=== PATIENT | female | born 1955 | race American Indian/Alaskan Native ===

== ENCOUNTER 2016-11-09 13:15 | Emergency (ER) | payer MEDICARE ==
[2016-11-09 15:13] LABS: Basophils % (Auto) 0.7 % (0.0-1.8); Hematocrit 37.7 % (30.3-42.9); Hemoglobin 12.3 gm/dl (10.1-14.3); Mean Corpuscular HGB Conc 33 % (30-34); Mean Corpuscular Hemoglobin 28 pg (28-32); Mean Corpuscular Volume 86 fl (79-97); Platelet Count 345 K/mm3 (140-440); Red Blood Count 4.37 M/mm3 (3.65-5.03); Red Cell Distribution Width 14.5 % (13.2-15.2); White Blood Count 7.1 K/mm3 (4.5-11.0)
[2016-11-09 15:28] LABS: Anion Gap 20 mmol/L; Blood Urea Nitrogen 12 mg/dL (7-17); Calcium 10.3 mg/dL (8.4-10.2); Carbon Dioxide 28 mmol/L (22-30); Chloride 99.2 mmol/L (98-107); Glucose 120 mg/dL (65-100); Potassium 4.2 mmol/L (3.6-5.0); Sodium 143 mmol/L (137-145)
--- NOTE | 2016-11-09 16:46 | XRay Report ---
Chest 2 views. Findings: The heart and vessels are normal. The lungs are clear. There is suboptimal inspiration. There is no pleural fluid. Degenerative changes are seen in the dorsal spine. Impression: No acute findings.
--- NOTE | 2016-11-09 21:41 | Emergency Department Report ---
ED General Adult HPI - General Chief complaint: Dyspnea/Respdistress Stated complaint: CONGESTION/COUGH/SORE THROAT Time Seen by Provider: 11/09/16 21:25 Source: patient Mode of arrival: Ambulatory Limitations: No Limitations - History of Present Illness Initial comments: 61 y/o female complain of cough x 1 week .pt complain of of sore throat x 2 weeks .pt state painful to swallow .pain is current /.pt state that constant cough has cause intermittent chest discomfort upon cough.pt denies any chest pain at present .pt state she has been out htn and dm medication x 1 week .pt state she has appointment with [facility] in 2 weeks.pt denies any shortness of breath and n/v or dizziness at present. Onset/Timin -: week(s) Associated Symptoms: cough, other (sore throat ) - Related Data Home Medications Medication Instructions Recorded Confirmed Last Taken amLODIPine [Norvasc] 10 mg PO DAILY #0 01/13/15 03/11/15 Unknown Aspirin [Aspirin TAB] 325 mg PO QDAY 03/14/15 03/14/15 1 Day Ago Previous Rx's Medication Instructions Recorded Last Taken Type ALBUTEROL Inhaler [ProAir HFA 2 puff IH QID PRN #1 inhalation 12/21/13 Unknown Rx Inhaler] metFORMIN [Glucophage] 500 mg PO BID #60 tablet 07/10/14 Unknown Rx Metoprolol [Lopressor TAB] 50 mg PO BID #60 tablet 03/14/15 Unknown Rx Simvastatin 20 mg PO QHS #30 tablet 03/14/15 Unknown Rx glipiZIDE [Glucotrol] 5 mg PO QDAY #30 tablet 03/14/15 Unknown Rx Acetaminophen with Codeine 120 ml PO TID #120 elixir 11/09/16 Unknown Rx [Acetaminophen-Codeine ORAL LIQ] Azithromycin [Zithromax Z-TAMIKA] 250 mg PO DAILY #6 tablet 11/09/16 Unknown Rx Allergies Allergy/AdvReac Type Severity Reaction Status Date / Time No Known Allergies Allergy Verified 01/13/15 17:54 ED Review of Systems ROS: Stated complaint: CONGESTION/COUGH/SORE THROAT Other details as noted in HPI Constitutional: denies: chills, fever Eyes: denies: eye pain, eye discharge, vision change ENT: throat pain. denies: ear pain Respiratory: cough. denies: shortness of breath, wheezing Cardiovascular: denies: chest pain, palpitations Endocrine: no symptoms reported Gastrointestinal: denies: abdominal pain, nausea, diarrhea Genitourinary: denies: urgency, dysuria, discharge Musculoskeletal: denies: back pain, joint swelling, arthralgia Skin: denies: rash, lesions Neurological: denies: headache, weakness, paresthesias Psychiatric: denies: anxiety, depression Hematological/Lymphatic: denies: easy bleeding, easy bruising ED Past Medical Hx - Past Medical History Hx Hypertension: Yes Hx Congestive Heart Failure: Yes Hx Diabetes: Yes Hx Asthma: No Hx COPD: No Hx HIV: No - Surgical History Hx Breast Surgery: Yes (reduction) Additional Surgical History: hysterectomy. tubal ligation - Social History Smoking Status: Never Smoker Substance Use Type: None - Medications Home Medications: Home Medications Medication Instructions Recorded Confirmed Last Taken Type ALBUTEROL Inhaler [ProAir HFA 2 puff IH QID PRN #1 inhalation 12/21/13 03/11/15 Unknown Rx Inhaler] metFORMIN [Glucophage] 500 mg PO BID #60 tablet 07/10/14 03/11/15 Unknown Rx amLODIPine [Norvasc] 10 mg PO DAILY #0 01/13/15 03/11/15 Unknown History Aspirin [Aspirin TAB] 325 mg PO QDAY 03/14/15 03/14/15 1 Day Ago History Metoprolol [Lopressor TAB] 50 mg PO BID #60 tablet 03/14/15 Unknown Rx Simvastatin 20 mg PO QHS #30 tablet 03/14/15 Unknown Rx glipiZIDE [Glucotrol] 5 mg PO QDAY #30 tablet 03/14/15 Unknown Rx Acetaminophen with Codeine 120 ml PO TID #120 elixir 11/09/16 Unknown Rx [Acetaminophen-Codeine ORAL LIQ] Azithromycin [Zithromax Z-TAMIKA] 250 mg PO DAILY #6 tablet 11/09/16 Unknown Rx ED Physical Exam - General Limitations: No Limitations General appearance: alert, in no apparent distress - Head Head exam: Present: atraumatic, normocephalic - Eye Eye exam: Present: normal appearance, PERRL - ENT ENT exam: Present: mucous membranes moist - Expanded ENT Exam Expanded TM/Canal exam: Effusion: Right TM, Left TM Mouth exam: Present: other (post nasal drip ) Throat exam: Positive: tonsillar erythema, tonsillomegaly - Neck Neck exam: Present: normal inspection - Respiratory Respiratory exam: Present: normal lung sounds bilaterally. Absent: respiratory distress - Cardiovascular Cardiovascular Exam: Present: regular rate, normal rhythm. Absent: systolic murmur, diastolic murmur, rubs, gallop - GI/Abdominal GI/Abdominal exam: Present: soft, normal bowel sounds - Extremities Exam Extremities exam: Present: normal inspection, full ROM - Back Exam Back exam: Present: normal inspection, full ROM - Neurological Exam Neurological exam: Present: alert, oriented X3 - Psychiatric Psychiatric exam: Present: normal affect, normal mood - Skin Skin exam: Present: warm, dry, intact, normal color. Absent: rash ED Course Vital Signs 11/09/16 13:50 Temperature 98.4 F Pulse Rate 91 H Respiratory 16 Rate Blood Pressure 153/92 O2 Sat by Pulse 97 Oximetry ED Medical Decision Making - Lab Data Result diagrams: 11/09/16 14:57 11/09/16 14:57 - Medical Decision Making upper respiratory infection .pt current out of htn and dm pt denies any chest discomfort during course of ed .pt refuse any pain medication during the course of ed . Critical care attestation.: If time is entered above; I have spent that time in minutes in the direct care of this critically ill patient, excluding procedure time. ED Disposition Clinical Impression: Upper respiratory infection Qualifiers: URI type: unspecified URI Qualified Code(s): J06.9 - Acute upper respiratory infection, unspecified Disposition: DISCHARGED TO HOME OR SELFCARE Is pt being admited?: No Does the pt Need Aspirin: No Condition: Stable Instructions: Upper Respiratory Infection (ED) Prescriptions: Acetaminophen with Codeine [Acetaminophen-Codeine ORAL LIQ] 120 ml PO TID #120 elixir Azithromycin [Zithromax Z-TAMIKA] 250 mg PO DAILY #6 tablet Referrals: PRIMARY CARE,MD [Primary Care Provider] - 3-5 Days [facility] [Outside] - 3-5 Days Forms: Work/School Release Form(ED) Time of Disposition: 21:51
[2016-11-09 22:36] VITALS: BP 165/104
== END 2016-11-09 21:52 | disposition home or self-care (01) ==
LOC: ED 13:15
DX: J06.9 Acute upper respiratory infection, unspecified (principal); I10 Essential (primary) hypertension; E11.9 Type 2 diabetes mellitus without complications; Z98.51 Tubal ligation status; Z90.710 Acquired absence of both cervix and uterus
CPT/HCPCS: 36415; 71020; 80048; 84484; 85025; 87116; 87430; 93005; 93010; 99285

== ENCOUNTER 2017-01-23 19:12 | Emergency (ER) | payer MEDICARE ==
[2017-01-23 22:08] LABS: Hematocrit 32.6 % (30.3-42.9); Hemoglobin 10.8 gm/dl (10.1-14.3); Mean Corpuscular HGB Conc 33 % (30-34); Mean Corpuscular Hemoglobin 29 pg (28-32); Mean Corpuscular Volume 87 fl (79-97); Red Blood Count 3.76 M/mm3 (3.65-5.03); White Blood Count 12.5 K/mm3 (4.5-11.0)
[2017-01-23 22:15] LABS: Platelet Count 232 K/mm3 (140-440)
[2017-01-23 22:34] LABS: Albumin 4.4 g/dL (3.9-5); Albumin/Globulin Ratio 1.1 %; BUN/Creatinine Ratio 13.57; Bilirubin,Total 0.6 mg/dL (0.1-1.2); Calcium 10.8 mg/dL (8.4-10.2); Chloride 94.5 mmol/L (98-107); Potassium 4.1 mmol/L (3.6-5.0); Total Protein 8.3 g/dL (6.3-8.2)
[2017-01-23 22:35] LABS: Bacteria,Urine 1+ /HPF (Negative); Bilirubin,Urine NEG (Negative); Blood,Urine SM (Negative); Ketones,Urine TR mg/dL (Negative); Leukocyte Esterase,Urine NEG (Negative); Mucus,Urine FEW /HPF; Nitrite,Urine NEG (Negative); Urobilinogen,Urine < 2.0 mg/dL (<2.0)
[2017-01-23 22:45] LABS: Anisocytosis 1+; Basophils % (Manual) 0 % (0.0-1.8); Blastocytes % (Manual) 0 %; Eosinophils % (Manual) 0 % (0.0-4.3); Poikilocytosis Few
[2017-01-23 22:46] LABS: Diff Status Complete
[2017-01-24 00:35] VITALS: BP 185/106
--- NOTE | 2017-02-01 13:44 | ED Elopement Review ---
ED Pt Elopement review - Results review Lab results: Laboratory Tests 01/23/17 01/23/17 01/23/17 21:54 21:54 22:00 WBC 12.5 H RBC 3.76 Hgb 10.8 Hct 32.6 MCV 87 MCH 29 MCHC 33 RDW 14.0 Plt Count 232 Add Manual Diff Complete Total Counted 100 Seg Neutrophils % [place] Seg Neuts % (Manual) 96.0 H Band Neutrophils % 0 Lymphocytes % (Manual) 2.0 L Reactive Lymphs % (Man) 0 Monocytes % (Manual) 2.0 Eosinophils % (Manual) 0 Basophils % (Manual) 0 Metamyelocytes % 0 Myelocytes % 0 Promyelocytes % 0 Blast Cells % 0 Nucleated RBC % Not Reportable Seg Neutrophils # Man 12.0 H Band Neutrophils # 0.0 Lymphocytes # (Manual) 0.3 L Abs React Lymphs (Man) 0.0 Monocytes # (Manual) 0.3 Eosinophils # (Manual) 0.0 Basophils # (Manual) 0.0 Metamyelocytes # 0.0 Myelocytes # 0.0 Promyelocytes # 0.0 Blast Cells # 0.0 WBC Morphology Not Reportable Hypersegmented Neuts Not Reportable Hyposegmented Neuts Not Reportable Hypogranular Neuts Not Reportable Smudge Cells Not Reportable Toxic Granulation Not Reportable Toxic Vacuolation Not Reportable Dohle Bodies Not Reportable Pelger-Huet Anomaly Not Reportable Meeta Rods Not Reportable Platelet Estimate Appears normal Clumped Platelets Not Reportable Plt Clumps, EDTA Not Reportable Large Platelets Not Reportable Giant Platelets Not Reportable Platelet Satelliting Not Reportable Plt Morphology Comment Not Reportable RBC Morphology Not Reportable Dimorphic RBCs Not Reportable Polychromasia Not Reportable Hypochromasia Not Reportable Poikilocytosis Few Anisocytosis 1+ Microcytosis Not Reportable Macrocytosis Not Reportable Spherocytes Not Reportable Pappenheimer Bodies Not Reportable Sickle Cells Not Reportable Target Cells Not Reportable Tear Drop Cells Not Reportable Ovalocytes Not Reportable Helmet Cells Not Reportable St[place] Bodies Not Reportable [place] Rings Not Reportable [place] Cells Not Reportable Bite Cells Not Reportable Crenated Cell Not Reportable Elliptocytes Not Reportable Acanthocytes (Spur) Not Reportable Rouleaux Not Reportable Hemoglobin C Crystals Not Reportable Schistocytes Not Reportable Malaria parasites Not Reportable Cornelius Bodies Not Reportable Hem Pathologist Commnt No Sodium 137 Potassium 4.1 Chloride 94.5 L Carbon Dioxide 24 Anion Gap 23 BUN 19 H Creatinine 1.4 H Estimated GFR 46 BUN/Creatinine Ratio 13.57 Glucose 209 H Calcium 10.8 H Total Bilirubin 0.6 AST 22 ALT 18 Alkaline Phosphatase 75 Total Protein 8.3 H Albumin 4.4 Albumin/Globulin Ratio 1.1 Lipase 69 H Urine Color Yellow Urine Turbidity Clear Urine pH 5.0 Ur Specific [place] 1.016 Urine Protein 100 mg/dl Urine Glucose (UA) 50 Urine Ketones Tr Urine Blood Sm Urine Nitrite Neg Urine Bilirubin Neg Urine Urobilinogen < 2.0 Ur Leukocyte Esterase Neg Urine WBC (Auto) 2.0 Urine RBC (Auto) 2.0 U Epithel Cells (Auto) 8.0 Urine Bacteria (Auto) 1+ Urine Mucus Few - Call Back decision Pt Call Back Decision: No action required
== END 2017-01-24 03:06 | disposition left against medical advice (07) ==
LOC: ED 19:12
DX: R11.2 Nausea with vomiting, unspecified (principal); M54.9 Dorsalgia, unspecified; Z53.21 Procedure and treatment not carried out due to patient leaving prior to being seen by health care provider
CPT/HCPCS: 36415; 80053; 81001; 83690; 85007; 85025

== ENCOUNTER 2017-12-24 11:39 | Outpatient (CLI) | payer MEDICARE ==
[2017-12-24 12:02] LABS: Basophils % (Auto) 0.8 % (0.0-1.8); Eosinophils # (Auto) 0.2 K/mm3 (0.0-0.4); Eosinophils % (Auto) 3.3 % (0.0-4.3); Hemoglobin 10.7 gm/dl (10.1-14.3); Lymphocytes % (Auto) 33.9 % (13.4-35.0); Mean Corpuscular HGB Conc 33 % (30-34); Mean Corpuscular Hemoglobin 28 pg (28-32); Mean Corpuscular Volume 87 fl (79-97); Monocytes # (Auto) 0.3 K/mm3 (0.0-0.8); Monocytes % (Auto) 5.5 % (0.0-7.3); Platelet Count 346 K/mm3 (140-440); Red Blood Count 3.78 M/mm3 (3.65-5.03); Red Cell Distribution Width 14.8 % (13.2-15.2)
[2017-12-24 12:21] LABS: Bilirubin,Urine NEG (Negative); Blood,Urine NEG (Negative); Color,Urine Yellow (Yellow); RBC,Urine < 1.0 /HPF (0.0-6.0); Urobilinogen,Urine < 2.0 mg/dL (<2.0)
[2017-12-24 12:27] LABS: Albumin 4.5 g/dL (3.9-5); Calcium 10.5 mg/dL (8.4-10.2)
[2017-12-24 14:02] LABS: Creatinine,Urine 90.1 mg/dL (0.1-20.0); Protein/Creatinine Ratio,Urine 0.31
== END 2017-12-24 11:40 | disposition home or self-care (01) ==
LOC: LAB 11:39
PROVIDERS: ATTEND Internal Medicine Nephrology
DX: I13.0 Hypertensive heart and chronic kidney disease with heart failure and stage 1 through stage 4 chronic kidney disease, or unspecified chronic kidney disease (principal); N18.3 Chronic kidney disease, stage 3 (moderate); I50.9 Heart failure, unspecified; E11.22 Type 2 diabetes mellitus with diabetic chronic kidney disease
CPT/HCPCS: 36415; 80053; 81001; 82570; 83970; 84100; 84156; 85025

== ENCOUNTER 2018-01-03 09:49 | Outpatient (CLI) | payer MEDICARE ==
--- NOTE | 2018-01-03 11:15 | Cat Scan Report ---
FINAL REPORT EXAM: CT HEAD/BRAIN WO CON HISTORY: HISTORY OF STROKE W/O RESIDUAL DEFICIT TECHNIQUE: CT of the Head without IV contrast. PRIORS: None currently available. FINDINGS: Focal encephalomalacia in the left occipital lobe and along the medial margin the left parietal lobe is probably related to chronic ischemia. Chronic lacunar infarcts in both basal ganglias. Decreased attenuation regions in the periventricular and subcortical white matter are nonspecific and may represent small vessel ischemic disease, encephalopathy, edema, or a demyelinating process. Small vessel ischemic disease is more likely. Vascular calcifications. There is no evidence for acute ischemia. There is no hemorrhage. There is no midline shift. There is no hydrocephalus. There is no mass. Age appropriate owen-white matter attenuation is noted. There is no calvarial fracture. The temporal bones demonstrate aerated mastoid air cells. The middle ears appear unremarkable. Possible mucosal thickening or partially imaged retention cysts in the left maxillary sinus measures 2.2 mm. Globes are intact. IMPRESSION: No acute intracranial findings. Chronic ischemic disease.
== END 2018-01-03 09:50 | disposition home or self-care (01) ==
LOC: CT 09:49
PROVIDERS: ATTEND Student in an Organized Health Care Education/Training Program
DX: I69.398 Other sequelae of cerebral infarction (principal); I99.8 Other disorder of circulatory system; G93.89 Other specified disorders of brain
CPT/HCPCS: 70450

== ENCOUNTER 2018-06-15 10:01 | Emergency (ER) | payer MEDICARE ==
[2018-06-15 10:17] VITALS: BP 131/69
[2018-06-15] MEDS ORDERED: NACL 0.9% 1000 ML 1,000 ML IV ONE (11:49)
--- NOTE | 2018-06-15 11:54 | Emergency Department Report ---
ED Abdominal Pain HPI - General Chief Complaint: Abdominal Pain Stated Complaint: LEFT SIDE BODY PAIN Time Seen by Provider: 06/15/18 11:39 Source: patient Mode of arrival: Ambulatory Limitations: No Limitations - History of Present Illness Initial Comments: 63-year-old female with complaints of left flank pain 6 days. Patient states unable to lay on left side. Denies fever, nausea, vomiting, diarrhea, constipation. Patient denies cough, chest pain, shortness of breath, leg pain or swelling. Patient also denies urinary complaints including hematuria, dysuria, urinary frequency. Patient reports remote history of kidney stone in the past. Patient states his been able to tolerate pain at home so has not taken any pain meds. Patient reports brief radiation of pain to right upper quadrant which is now resolved. MD Complaint: flank pain (left) -: Gradual, days(s) (6) Location: LUQ, L flank Radiation: none Migration to: no migration Severity: moderate Quality: aching Consistency: intermittent Improves With: rest Worsens With: movement Associated Symptoms: denies: nausea, vomiting, diarrhea, fever, constipation, dysuria, melena, hematuria - Related Data Home Medications Medication Instructions Recorded Confirmed Last Taken amLODIPine [Norvasc] 10 mg PO DAILY #0 01/13/15 03/11/15 Unknown Aspirin [Aspirin TAB] 325 mg PO QDAY 03/14/15 03/14/15 1 Day Ago ~03/13/15 Previous Rx's Medication Instructions Recorded Last Taken Type ALBUTEROL Inhaler (OR & NICU) 2 puff IH QID PRN #1 inhalation 12/21/13 Unknown Rx [ProAir HFA Inhaler] metFORMIN [Glucophage] 500 mg PO BID #60 tablet 07/10/14 Unknown Rx Metoprolol [Lopressor TAB] 50 mg PO BID #60 tablet 03/14/15 Unknown Rx Simvastatin 20 mg PO QHS #30 tablet 03/14/15 Unknown Rx glipiZIDE [Glucotrol] 5 mg PO QDAY #30 tablet 03/14/15 Unknown Rx Acetaminophen with Codeine 120 ml PO TID #120 elixir 11/09/16 Unknown Rx [Acetaminophen-Codeine ORAL LIQ] Azithromycin [Zithromax Z-TAMIKA] 250 mg PO DAILY #6 tablet 11/09/16 Unknown Rx Lisinopril [Zestril TAB] 10 mg PO QDAY #30 tablet 11/09/16 Unknown Rx amLODIPine [Norvasc] 5 mg PO BID #30 tab 11/09/16 Unknown Rx metFORMIN [Glucophage] 500 mg PO BID #60 tablet 11/09/16 Unknown Rx Methocarbamol [Robaxin-750] 750 mg PO Q6HR PRN #20 tablet 06/15/18 Unknown Rx Allergies Allergy/AdvReac Type Severity Reaction Status Date / Time No Known Allergies Allergy Verified 01/13/15 17:54 ED Review of Systems ROS: Stated complaint: LEFT SIDE BODY PAIN Other details as noted in HPI Comment: All other systems reviewed and negative Constitutional: denies: chills, fever Respiratory: denies: cough, shortness of breath Cardiovascular: denies: chest pain Gastrointestinal: abdominal pain. denies: nausea, vomiting, diarrhea, constipation Genitourinary: denies: dysuria, frequency, hematuria Musculoskeletal: other (denies leg pain or swelling) ED Past Medical Hx - Past Medical History Previous Medical History?: Yes Hx Hypertension: Yes Hx Congestive Heart Failure: Yes Hx Diabetes: Yes Hx Asthma: No Hx COPD: No Hx HIV: No - Surgical History Past Surgical History?: Yes Hx Breast Surgery: Yes (reduction) Additional Surgical History: hysterectomy. tubal ligation - Social History Smoking Status: Never Smoker Substance Use Type: None - Medications Home Medications: Home Medications Medication Instructions Recorded Confirmed Last Taken Type ALBUTEROL Inhaler (OR & NICU) 2 puff IH QID PRN #1 inhalation 12/21/13 03/11/15 Unknown Rx [ProAir HFA Inhaler] metFORMIN [Glucophage] 500 mg PO BID #60 tablet 07/10/14 03/11/15 Unknown Rx amLODIPine [Norvasc] 10 mg PO DAILY #0 01/13/15 03/11/15 Unknown History Aspirin [Aspirin TAB] 325 mg PO QDAY 03/14/15 03/14/15 1 Day Ago History ~03/13/15 Metoprolol [Lopressor TAB] 50 mg PO BID #60 tablet 03/14/15 Unknown Rx Simvastatin 20 mg PO QHS #30 tablet 03/14/15 Unknown Rx glipiZIDE [Glucotrol] 5 mg PO QDAY #30 tablet 03/14/15 Unknown Rx Acetaminophen with Codeine 120 ml PO TID #120 elixir 11/09/16 Unknown Rx [Acetaminophen-Codeine ORAL LIQ] Azithromycin [Zithromax Z-TAMIKA] 250 mg PO DAILY #6 tablet 11/09/16 Unknown Rx Lisinopril [Zestril TAB] 10 mg PO QDAY #30 tablet 11/09/16 Unknown Rx amLODIPine [Norvasc] 5 mg PO BID #30 tab 11/09/16 Unknown Rx metFORMIN [Glucophage] 500 mg PO BID #60 tablet 11/09/16 Unknown Rx Methocarbamol [Robaxin-750] 750 mg PO Q6HR PRN #20 tablet 06/15/18 Unknown Rx ED Physical Exam - General Limitations: No Limitations General appearance: alert, in no apparent distress - Head Head exam: Present: atraumatic, normocephalic - Eye Eye exam: Present: normal appearance - ENT ENT exam: Present: mucous membranes moist - Neck Neck exam: Present: normal inspection - Respiratory Respiratory exam: Present: normal lung sounds bilaterally. Absent: respiratory distress - Cardiovascular Cardiovascular Exam: Present: regular rate, normal rhythm - GI/Abdominal GI/Abdominal exam: Present: soft. Absent: distended, tenderness - Extremities Exam Extremities exam: Absent: pedal edema, calf tenderness - Back Exam Back exam: Present: CVA tenderness (L) - Neurological Exam Neurological exam: Present: alert, oriented X3 - Psychiatric Psychiatric exam: Present: normal affect, normal mood - Skin Skin exam: Present: warm, dry, intact, normal color ED Course Vital Signs 06/15/18 10:09 Temperature 98.8 F Pulse Rate 71 Respiratory 18 Rate Blood Pressure 131/69 O2 Sat by Pulse 97 Oximetry ED Medical Decision Making - Lab Data Result diagrams: 06/15/18 12:22 06/15/18 12:22 - Differential Diagnosis muscle strain, kidney stone, pyelonephritis Critical care attestation.: If time is entered above; I have spent that time in minutes in the direct care of this critically ill patient, excluding procedure time. ED Disposition Clinical Impression: Muscle strain of chest wall Disposition: DC-01 TO HOME OR SELFCARE Is pt being admited?: No Condition: Stable Instructions: Muscle Strain (ED) Prescriptions: Methocarbamol [Robaxin-750] 750 mg PO Q6HR PRN #20 tablet PRN Reason: Spasms Referrals: PRIMARY CARE, [Primary Care Provider] - 3-5 Days
[2018-06-15 12:12] LABS: Bilirubin,Urine NEG (Negative); Blood,Urine NEG (Negative); Color,Urine Yellow (Yellow); Urobilinogen,Urine < 2.0 mg/dL (<2.0)
[2018-06-15 12:49] LABS: Basophils % (Auto) 0.6 % (0.0-1.8); Eosinophils # (Auto) 0.2 K/mm3 (0.0-0.4); Eosinophils % (Auto) 3.2 % (0.0-4.3); Hematocrit 33.3 % (30.3-42.9); Hemoglobin 10.9 gm/dl (10.1-14.3); Lymphocytes % (Auto) 31.5 % (13.4-35.0); Mean Corpuscular HGB Conc 33 % (30-34); Mean Corpuscular Hemoglobin 28 pg (28-32); Mean Corpuscular Volume 87 fl (79-97); Monocytes # (Auto) 0.5 K/mm3 (0.0-0.8); Monocytes % (Auto) 7.3 % (0.0-7.3); Platelet Count 343 K/mm3 (140-440); Red Blood Count 3.84 M/mm3 (3.65-5.03); Red Cell Distribution Width 14.4 % (13.2-15.2)
--- NOTE | 2018-06-15 12:49 | Cat Scan Report ---
FINAL REPORT EXAM: CT ABDOMEN PELVIS WO CON HISTORY: left flank pain TECHNIQUE: Noncontrast CT of the abdomen and pelvis performed. No IV or gastrointestinal contrast was administered. Axial images and coronal and sagittal reformatted images were obtained. PRIORS: None. FINDINGS: The visualized aspects of the lung bases are clear. There are coronary artery atherosclerotic calcifications. Within the limitations of a non-enhanced study, the visualized liver, spleen, pancreas, adrenal glands and kidneys demonstrate no significant abnormalities. There is a punctate nonobstructing right intrarenal calculus. There is no hydronephrosis or other evidence of obstructive uropathy. There are aortoiliac atherosclerotic calcifications. There is no abdominal aortic aneurysm. There is no evidence of intestinal obstruction. The appendix is normal. There is diverticulosis throughout the colon. There is no evidence of acute diverticulitis. There are no abnormal fluid collections seen. There is no free intraperitoneal air. The bladder is unremarkable. IMPRESSION: Diverticulosis. No acute diverticulitis seen. Punctate nonobstructing right intrarenal calculus. No hydronephrosis or other evidence for acute obstructive uropathy. Coronary and aortic atherosclerotic calcifications.
[2018-06-15 12:51] LABS: Calcium 10.6 mg/dL (8.4-10.2)
== END 2018-06-15 14:15 | disposition home or self-care (01) ==
LOC: ED 10:01
DX: S29.011A Strain of muscle and tendon of front wall of thorax, initial encounter (principal); I11.0 Hypertensive heart disease with heart failure; I50.9 Heart failure, unspecified; E11.9 Type 2 diabetes mellitus without complications; Z90.710 Acquired absence of both cervix and uterus; Z98.51 Tubal ligation status; Z79.82 Long term (current) use of aspirin; X58.XXXA Exposure to other specified factors, initial encounter; Y93.89 Activity, other specified; Y92.89 Other specified places as the place of occurrence of the external cause; Y99.8 Other external cause status
CPT/HCPCS: 36415; 74176; 80048; 81001; 85025; 99284

== ENCOUNTER 2019-01-13 13:05 | Emergency (ER) | payer MEDICARE ==
--- NOTE | 2019-01-13 13:29 | Emergency Department Report ---
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 Due to findings the following was ordered: EKG, labs, UA, CXR ED Disposition for MSE Condition: Stable
[2019-01-13 14:12] LABS: Basophils # (Auto) 0.1 K/mm3 (0.0-0.1); Eosinophils # (Auto) 0.2 K/mm3 (0.0-0.4); Eosinophils % (Auto) 2.9 % (0.0-4.3); Hemoglobin 11.5 gm/dl (10.1-14.3); Lymphocytes # (Auto) 2.4 K/mm3 (1.2-5.4); Lymphocytes % (Auto) 35.5 % (13.4-35.0); Mean Corpuscular HGB Conc 34 % (30-34); Mean Corpuscular Volume 87 fl (79-97); Monocytes # (Auto) 0.5 K/mm3 (0.0-0.8); Monocytes % (Auto) 6.8 % (0.0-7.3); Platelet Count 311 K/mm3 (140-440); Red Blood Count 3.92 M/mm3 (3.65-5.03); Red Cell Distribution Width 14.5 % (13.2-15.2)
[2019-01-13 14:23] LABS: INR 0.9 (0.87-1.13)
[2019-01-13 14:31] LABS: Alanine Aminotransferase 20 units/L (7-56); Albumin 4.5 g/dL (3.9-5); BUN/Creatinine Ratio 13; Blood Urea Nitrogen 21 mg/dL (7-17); Calcium 10.7 mg/dL (8.4-10.2); Hemolysis Index 54
--- NOTE | 2019-01-13 15:13 | XRay Report ---
ROUTINE CHEST, TWO VIEWS: HISTORY: coronary artery disease. The trachea, heart, mediastinal contour, lung mahan and bony thorax are unremarkable. IMPRESSION: Unremarkable chest x-ray. No change since 11/09/16.
--- NOTE | 2019-01-13 17:45 | Emergency Department Report ---
ED General Adult HPI - General Chief complaint: Shoulder Injury Stated complaint: SHOULDER/ARM PAIN/HERNIA Time Seen by Provider: 01/13/19 13:24 Source: patient Mode of arrival: Ambulatory Limitations: No Limitations - History of Present Illness Initial comments: 63-year-old female presents to the ED complaining R rash showed a pain medicine going on for about a year. Patient states that last night pain was a bit worse than usual. 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 Patient stings that her shoulder pain is coming from her having a heart blockage. Patient denies any chest pain, dizziness, shortness of breath. Patient states pain is left and right shoulder. Does any injuries, trauma or falls. Severity scale (0 -10): 8 - Related Data Home Medications Medication Instructions Recorded Confirmed Last Taken amLODIPine [Norvasc] 10 mg PO DAILY #0 01/13/15 03/11/15 Unknown Aspirin [Aspirin TAB] 325 mg PO QDAY 03/14/15 03/14/15 1 Day Ago ~03/13/15 Previous Rx's Medication Instructions Recorded Last Taken Type ALBUTEROL Inhaler (OR & NICU) 2 puff IH QID PRN #1 inhalation 12/21/13 Unknown Rx [ProAir HFA Inhaler] metFORMIN [Glucophage] 500 mg PO BID #60 tablet 07/10/14 Unknown Rx Metoprolol [Lopressor TAB] 50 mg PO BID #60 tablet 03/14/15 Unknown Rx Simvastatin 20 mg PO QHS #30 tablet 03/14/15 Unknown Rx glipiZIDE [Glucotrol] 5 mg PO QDAY #30 tablet 03/14/15 Unknown Rx Acetaminophen with Codeine 120 ml PO TID #120 elixir 11/09/16 Unknown Rx [Acetaminophen-Codeine ORAL LIQ] Azithromycin [Zithromax Z-TAMIKA] 250 mg PO DAILY #6 tablet 11/09/16 Unknown Rx Lisinopril [Zestril TAB] 10 mg PO QDAY #30 tablet 11/09/16 Unknown Rx amLODIPine [Norvasc] 5 mg PO BID #30 tab 11/09/16 Unknown Rx metFORMIN [Glucophage] 500 mg PO BID #60 tablet 11/09/16 Unknown Rx Methocarbamol [Robaxin-750] 750 mg PO Q6HR PRN #20 tablet 06/15/18 Unknown Rx Naproxen [Naprosyn] 500 mg PO BID #30 tablet 01/13/19 Unknown Rx Allergies Allergy/AdvReac Type Severity Reaction Status Date / Time No Known Allergies Allergy Verified 01/13/15 17:54 ED Review of Systems ROS: Stated complaint: SHOULDER/ARM PAIN/HERNIA Other details as noted in HPI Comment: All other systems reviewed and negative ED Past Medical Hx - Past Medical History Hx Hypertension: Yes Hx CVA: Yes (blind spots) Hx Congestive Heart Failure: Yes Hx Diabetes: Yes Hx Asthma: No Hx COPD: No Hx HIV: No Additional medical history: heart block-stent placement attempted 2017- unsuccessfully - Surgical History Hx Breast Surgery: Yes (reduction) Additional Surgical History: hysterectomy. tubal ligation - Social History Smoking Status: Never Smoker Substance Use Type: None - Medications Home Medications: Home Medications Medication Instructions Recorded Confirmed Last Taken Type ALBUTEROL Inhaler (OR & NICU) 2 puff IH QID PRN #1 inhalation 12/21/13 03/11/15 Unknown Rx [ProAir HFA Inhaler] metFORMIN [Glucophage] 500 mg PO BID #60 tablet 07/10/14 03/11/15 Unknown Rx amLODIPine [Norvasc] 10 mg PO DAILY #0 01/13/15 03/11/15 Unknown History Aspirin [Aspirin TAB] 325 mg PO QDAY 03/14/15 03/14/15 1 Day Ago History ~03/13/15 Metoprolol [Lopressor TAB] 50 mg PO BID #60 tablet 03/14/15 Unknown Rx Simvastatin 20 mg PO QHS #30 tablet 03/14/15 Unknown Rx glipiZIDE [Glucotrol] 5 mg PO QDAY #30 tablet 03/14/15 Unknown Rx Acetaminophen with Codeine 120 ml PO TID #120 elixir 11/09/16 Unknown Rx [Acetaminophen-Codeine ORAL LIQ] Azithromycin [Zithromax Z-TAMIKA] 250 mg PO DAILY #6 tablet 11/09/16 Unknown Rx Lisinopril [Zestril TAB] 10 mg PO QDAY #30 tablet 11/09/16 Unknown Rx amLODIPine [Norvasc] 5 mg PO BID #30 tab 11/09/16 Unknown Rx metFORMIN [Glucophage] 500 mg PO BID #60 tablet 11/09/16 Unknown Rx Methocarbamol [Robaxin-750] 750 mg PO Q6HR PRN #20 tablet 06/15/18 Unknown Rx Naproxen [Naprosyn] 500 mg PO BID #30 tablet 01/13/19 Unknown Rx ED Physical Exam - General Limitations: No Limitations General appearance: alert, in no apparent distress - Head Head exam: Present: atraumatic, normocephalic - Eye Eye exam: Present: normal appearance - ENT ENT exam: Present: mucous membranes moist - Neck Neck exam: Present: normal inspection, full ROM - Respiratory Respiratory exam: Present: normal lung sounds bilaterally. Absent: respiratory distress, wheezes, rales, chest wall tenderness - Cardiovascular Cardiovascular Exam: Present: regular rate, normal rhythm. Absent: systolic murmur, diastolic murmur, rubs, gallop - GI/Abdominal GI/Abdominal exam: Present: soft, normal bowel sounds. Absent: distended, tenderness - Extremities Exam Extremities exam: Present: normal inspection, full ROM, normal capillary refill. Absent: tenderness, joint swelling - Expanded Upper Extremity Exam Right Shoulder Exam: Present: normal inspection, full ROM. Absent: tenderness, swelling, deformity, crepidus, dislocation Upper Arm exam: Present: normal inspection Elbow exam: Present: normal inspection Forearm Wrist exam: Present: normal inspection - Back Exam Back exam: Present: normal inspection - Neurological Exam Neurological exam: Present: alert, oriented X3, normal gait - Psychiatric Psychiatric exam: Present: normal affect, normal mood - Skin Skin exam: Present: warm, dry, intact, normal color. Absent: rash ED Course Vital Signs 01/13/19 13:26 Temperature 98.1 F Pulse Rate 69 Respiratory 18 Rate Blood Pressure 140/75 O2 Sat by Pulse 97 Oximetry ED Medical Decision Making - Lab Data Result diagrams: 01/13/19 13:52 01/13/19 13:52 Laboratory Last Values WBC 6.6 K/mm3 (4.5-11.0) 01/13/19 13:52 RBC 3.92 M/mm3 (3.65-5.03) 01/13/19 13:52 Hgb 11.5 gm/dl (10.1-14.3) 01/13/19 13:52 Hct 34.0 % (30.3-42.9) 01/13/19 13:52 MCV 87 fl (79-97) 01/13/19 13:52 MCH 29 pg (28-32) 01/13/19 13:52 MCHC 34 % (30-34) 01/13/19 13:52 RDW 14.5 % (13.2-15.2) 01/13/19 13:52 Plt Count 311 K/mm3 (140-440) 01/13/19 13:52 Lymph % (Auto) 35.5 % (13.4-35.0) H 01/13/19 13:52 [place] % (Auto) 6.8 % (0.0-7.3) 01/13/19 13:52 Eos % (Auto) 2.9 % (0.0-4.3) 01/13/19 13:52 Baso % (Auto) 1.0 % (0.0-1.8) 01/13/19 13:52 Lymph # 2.4 K/mm3 (1.2-5.4) 01/13/19 13:52 [place] # 0.5 K/mm3 (0.0-0.8) 01/13/19 13:52 Eos # 0.2 K/mm3 (0.0-0.4) 01/13/19 13:52 Baso # 0.1 K/mm3 (0.0-0.1) 01/13/19 13:52 Seg Neutrophils % 53.8 % (40.0-70.0) 01/13/19 13:52 Seg Neutrophils # 3.6 K/mm3 (1.8-7.7) 01/13/19 13:52 PT 12.7 Sec. (12.2-14.9) 01/13/19 13:52 INR 0.90 (0.87-1.13) 01/13/19 13:52 APTT 27.0 Sec. (24.2-36.6) 01/13/19 13:52 Sodium 137 mmol/L (137-145) 01/13/19 13:52 Potassium 4.8 mmol/L (3.6-5.0) 01/13/19 13:52 Chloride 98.5 mmol/L (98-107) 01/13/19 13:52 Carbon Dioxide 25 mmol/L (22-30) 01/13/19 13:52 Anion Gap 18 mmol/L 01/13/19 13:52 BUN 21 mg/dL (7-17) H 01/13/19 13:52 Creatinine 1.6 mg/dL (0.7-1.2) H 01/13/19 13:52 Estimated GFR 39 ml/min 01/13/19 13:52 BUN/Creatinine Ratio 13 % 01/13/19 13:52 Glucose 97 mg/dL (65-100) 01/13/19 13:52 Calcium 10.7 mg/dL (8.4-10.2) H 01/13/19 13:52 Total Bilirubin 0.70 mg/dL (0.1-1.2) 01/13/19 13:52 AST 25 units/L (5-40) 01/13/19 13:52 ALT 20 units/L (7-56) 01/13/19 13:52 Alkaline Phosphatase 67 units/L (35-129) 01/13/19 13:52 Troponin T < 0.010 ng/mL (0.00-0.029) 01/13/19 16:00 Total Protein 8.1 g/dL (6.3-8.2) 01/13/19 13:52 Albumin 4.5 g/dL (3.9-5) 01/13/19 13:52 Albumin/Globulin Ratio 1.3 % 01/13/19 13:52 - Radiology Data Radiology results: report reviewed No acute findings - Medical Decision Making 63-year-old female presents with right shoulder pain Patient states that she did have her doctor wishes to follow him up with him. She states that she will likely referral. Referral was given for her vascular surgeon and the heart doctor. Discussed the patient to follow-up with the vascular heart doctor. Vital signs are normal patient is in no acute distress All labs are within normal limits Critical care attestation.: If time is entered above; I have spent that time in minutes in the direct care of this critically ill patient, excluding procedure time. ED Disposition Clinical Impression: Shoulder pain, right Disposition: DC-01 TO HOME OR SELFCARE Is pt being admited?: No Does the pt Need Aspirin: No Condition: Stable Instructions: Arthralgia (ED), Shoulder Sprain (ED) Additional Instructions: Make sure to follow up with the primary care physician as discussed. Take all your medications as you've been prescribed. If you have any worsening symptoms or develop new symptoms please return to ED immediately. Prescriptions: Naproxen [Naprosyn] 500 mg PO BID #30 tablet Referrals: MARTHA RICHEY MD [Primary Care Provider] - 3-5 Days DIMITRIOS BANSAL MD [Staff Physician] - 3-5 Days MELISSA FERERRA MD [Staff Physician] - 3-5 Days Forms: Accompanied Note, Work/School Release Form(ED) Time of Disposition: 17:46
[2019-01-14 19:05] VITALS: BP 136/74
== END 2019-01-13 17:56 | disposition home or self-care (01) ==
LOC: ED 13:05
DX: M25.511 Pain in right shoulder (principal); I11.0 Hypertensive heart disease with heart failure; I50.9 Heart failure, unspecified; E11.9 Type 2 diabetes mellitus without complications; Z90.710 Acquired absence of both cervix and uterus; Z98.51 Tubal ligation status; Z79.82 Long term (current) use of aspirin
CPT/HCPCS: 36415; 71046; 80053; 84484; 85025; 85610; 85730; 93005; 93010; 99284

== ENCOUNTER 2021-01-12 12:13 | Emergency (ER) | payer MEDICARE ==
--- NOTE | 2021-01-12 12:37 | Event Note ---
ED Screening Note ED Screening Note: left flank pain for two months states initially believed it was gas has not seen her PCP no fever no vomiting no diarrhea no dysuria no dark or odor to urine no blood in urine normal BMs no blood in stool PMHx HTN, DM, CVA, CHF no allergies to meds This initial assessment/diagnostic orders/clinical plan/treatment(s) is/are subject to change based on patients health status, clinical progression and re- assessment by fellow clinical providers in the ED. Further treatment and workup at subsequent clinical providers discretion. Patient/guardian urged not to elope from the ED as their condition may be serious if not clinically assessed and managed. Initial orders include: labs, UA, CT
[2021-01-12 14:08] LABS: Basophils % (Auto) 0.6 % (0.0-1.8); Eosinophils # (Auto) 0.3 K/mm3 (0.0-0.4); Eosinophils % (Auto) 4.5 % (0.0-4.3); Hematocrit 33.4 % (30.3-42.9); Hemoglobin 11.1 gm/dl (10.1-14.3); Lymphocytes # (Auto) 2.5 K/mm3 (1.2-5.4); Lymphocytes % (Auto) 33.7 % (13.4-35.0); Mean Corpuscular HGB Conc 33 % (30-34); Mean Corpuscular Volume 88 fl (79-97); Monocytes # (Auto) 0.6 K/mm3 (0.0-0.8); Monocytes % (Auto) 8.5 % (0.0-7.3); Platelet Count 303 K/mm3 (140-440); Red Blood Count 3.81 M/mm3 (3.65-5.03); Red Cell Distribution Width 14.2 % (13.2-15.2)
[2021-01-12 14:10] LABS: Bilirubin,Urine NEG (Negative); Blood,Urine NEG (Negative); Color,Urine Yellow (Yellow); Protein,Urine <15 mg/dL mg/dL (Negative); Urobilinogen,Urine < 2.0 mg/dL (<2.0)
--- NOTE | 2021-01-12 14:11 | Cat Scan Report ---
CT ABDOMEN AND PELVIS WITHOUT CONTRAST HISTORY: Left flank pain COMPARISON: 06/06/2020 TECHNIQUE: Axial CT images were obtained through the abdomen and pelvis without IV contrast. Sagittal and coronal reformatted images. All CT scans at this location are performed using CT dose reduction for ALARA by means of automated exposure control. FINDINGS: CT ABDOMEN: Lung Bases: Clear. Liver: No significant abnormality. Biliary: No significant abnormality. Spleen: No significant abnormality. Unenlarged. Pancreas: No significant abnormality. Adrenals: No significant abnormality. Kidneys: No significant abnormality. Lymphatics: No lymphadenopathy. Vasculature: Moderate diffuse aortic and iliac calcifications. No aneurysm. Bowel/Peritoneum: Mild diverticulosis of the colon is again noted. No evidence for obstruction, focal inflammation, free fluid or free air. Normal appendix. CT PELVIS: : Hysterectomy changes are evident. 1.6 cm right ovarian cyst is unchanged. The left ovary is unrem arkable. Normal bladder. Osseous Structures: Mild thoracolumbar spondylosis. No fracture or suspicious bony lesion. Additional Findings: None IMPRESSION: No acute inflammatory process is appreciated. Stable findings since 06/06/2020 exam. Signer Name: Jose Elias Rayo Jr, MD Signed: 01/12/2021 2:07 PM Workstation Name: [id number]
[2021-01-12 15:11] LABS: Albumin 4.1 g/dL (3.9-5); Calcium 10.7 mg/dL (8.4-10.2)
[2021-01-12] MEDS ORDERED: SODIUM CHLORIDE 0.9% 1000 ML 1,000 ML IV ONE (15:25)
[2021-01-12] MEDS ORDERED: ONDANSETRON 4 MG/2 ML INJ IV ONE (15:25)
--- NOTE | 2021-01-12 16:48 | Emergency Department Report ---
<ALVIN WOMACK III - Last Filed: 01/12/21 18:34> ED Abdominal Pain HPI - General Chief Complaint: Abdominal Pain Stated Complaint: L SIDE PAIN Time Seen by Provider: 01/12/21 12:35 - Related Data Home Medications Medication Instructions Recorded Confirmed Last Taken amLODIPine 10 mg PO DAILY #0 01/13/15 03/11/15 Unknown Aspirin 325 mg PO QDAY 03/14/15 03/14/15 1 Day Ago ~03/13/15 Previous Rx's Medication Instructions Recorded Last Taken Type Albuterol Mdi (or & Nicu Only) 2 puff IH QID PRN #1 inhalation 12/21/13 Unknown Rx [ProAir HFA Inhaler] metFORMIN [Glucophage] 500 mg PO BID #60 tablet 07/10/14 Unknown Rx Metoprolol [Lopressor TAB] 50 mg PO BID #60 tablet 03/14/15 Unknown Rx Simvastatin 20 mg PO QHS #30 tablet 03/14/15 Unknown Rx glipiZIDE [Glucotrol] 5 mg PO QDAY #30 tablet 03/14/15 Unknown Rx Acetaminophen with Codeine 120 ml PO TID #120 elixir 11/09/16 Unknown Rx [Acetaminophen-Codeine ORAL LIQ] Azithromycin [Zithromax Z-TAMIKA] 250 mg PO DAILY #6 tablet 11/09/16 Unknown Rx amLODIPine [Norvasc] 5 mg PO BID #30 tab 11/09/16 Unknown Rx lisinopriL [Zestril TAB] 10 mg PO QDAY #30 tablet 11/09/16 Unknown Rx metFORMIN [Glucophage] 500 mg PO BID #60 tablet 11/09/16 Unknown Rx methocarbamoL [Robaxin-750] 750 mg PO Q6HR PRN #20 tablet 06/15/18 Unknown Rx Naproxen [Naprosyn] 500 mg PO BID #30 tablet 01/13/19 Unknown Rx Ondansetron [Zofran Odt] 4 mg PO Q8HR PRN #14 tab.rapdis 06/06/20 Unknown Rx traMADoL [Ultram 50 MG tab] 50 mg PO Q4HR PRN #14 tablet 06/06/20 Unknown Rx Allergies Allergy/AdvReac Type Severity Reaction Status Date / Time No Known Allergies Allergy Verified 01/12/21 12:31 ED Past Medical Hx - Medications Home Medications: Home Medications Medication Instructions Recorded Confirmed Last Taken Type Albuterol Mdi (or & Nicu Only) 2 puff IH QID PRN #1 inhalation 12/21/13 03/11/15 Unknown Rx [ProAir HFA Inhaler] metFORMIN [Glucophage] 500 mg PO BID #60 tablet 07/10/14 03/11/15 Unknown Rx amLODIPine 10 mg PO DAILY #0 01/13/15 03/11/15 Unknown History Aspirin 325 mg PO QDAY 03/14/15 03/14/15 1 Day Ago History ~03/13/15 Metoprolol [Lopressor TAB] 50 mg PO BID #60 tablet 03/14/15 Unknown Rx Simvastatin 20 mg PO QHS #30 tablet 03/14/15 Unknown Rx glipiZIDE [Glucotrol] 5 mg PO QDAY #30 tablet 03/14/15 Unknown Rx Acetaminophen with Codeine 120 ml PO TID #120 elixir 11/09/16 Unknown Rx [Acetaminophen-Codeine ORAL LIQ] Azithromycin [Zithromax Z-TAMIKA] 250 mg PO DAILY #6 tablet 11/09/16 Unknown Rx amLODIPine [Norvasc] 5 mg PO BID #30 tab 11/09/16 Unknown Rx lisinopriL [Zestril TAB] 10 mg PO QDAY #30 tablet 11/09/16 Unknown Rx metFORMIN [Glucophage] 500 mg PO BID #60 tablet 11/09/16 Unknown Rx methocarbamoL [Robaxin-750] 750 mg PO Q6HR PRN #20 tablet 06/15/18 Unknown Rx Naproxen [Naprosyn] 500 mg PO BID #30 tablet 01/13/19 Unknown Rx Ondansetron [Zofran Odt] 4 mg PO Q8HR PRN #14 tab.rapdis 06/06/20 Unknown Rx traMADoL [Ultram 50 MG tab] 50 mg PO Q4HR PRN #14 tablet 06/06/20 Unknown Rx ED Course - Reevaluation(s) Reevaluation #1: I reviewed the findings and management of this patient in real-time and I have personally seen and examined this patient and participated in the decision making for this patient with the midlevel. Patient is a 65-year-old female that presents emergency room for worsening left flank and left lower quadrant abdominal pain. I examined the patient. Patient's has left flank and left lower quadrant abdominal tenderness to palpation. Patient CV exam shows normal S1-S2. Patient's lung sounds are clear. Patient has good skin turgor. Patient is normocephalic. I discussed all results and clinical findings with patient. I discussed plan of care with patient. Patient agrees with plan of care. Patient is stable for discharge. Patient will be discharged home. Patient given discharge instru ctions. Patient voiced understanding of discharge instructions. 01/12/21 18:34 ED Medical Decision Making - Lab Data Result diagrams: 01/12/21 13:18 01/12/21 13:18 ED Disposition Clinical Impression: Abdominal pain, Left flank pain, chronic Disposition: DC-01 TO HOME OR SELFCARE Condition: Stable Instructions: Abdominal Pain, Adult, [id number], Flank Pain, Adult, Abdominal Pain (ED) Additional Instructions: CAT scan is negative for any acute abnormalities. Labs are stable. I recommend Tylenol for abdominal pain. Increase your fluid intake advance your diet as tolerated. Is very important for you to follow-up with your primary care provider. Referrals: PRIMARY CAREMD [Primary Care Provider] - 3-5 Days [facility] [Provider Group] - 3-5 Days <WALLY MARTINO - Last Filed: 01/12/21 18:55> ED Abdominal Pain HPI - General Source: patient Mode of arrival: Ambulatory Limitations: No Limitations - History of Present Illness Initial Comments: 65-year-old -[place] female with a past medical history of hypertension, CVA x3 that she is aware of kidney disease and diabetes. Patient presents for left flank pain that radiates to the right side. This has been going on for approximately 2 months nothing makes it worse today that she felt she needed to come in. Patient states that she just was tired of being in a state and decided to come in to be evaluated. Patient states that she had discussed with her primary care provider and they were going to order labs. She does report she has nausea. She states that laying on her left side makes it worse and as she gets up from laying down she has pain. She denies any dysuria no urinary incontinent no hematuria no hematochezia no diarrhea no vomiting no chest pain or shortness of breath. Patient states that she is on a lot of medication but not aware of all of them. She does admit she is on potassium a water pill Metformin. She is followed by provider at [facility] on [address] and her pharmacy is [facility] [address]. Complaint: flank pain Onset/Timin -: month(s) Location: L flank Radiation: RUQ Severity: mild Severity scale (0 -10): 3 Consistency: intermittent Improves With: nothing Worsens With: rest (Left side) Associated Symptoms: nausea. denies: vomiting, diarrhea, fever, chills, constipation, dysuria, hematemesis, hematochezia ED Review of Systems ROS: Stated complaint: L SIDE PAIN Other details as noted in HPI Comment: All other systems reviewed and negative ED Past Medical Hx - Past Medical History Hx Hypertension: Yes Hx CVA: Yes (blind spots) Hx Congestive Heart Failure: Yes Hx Diabetes: Yes Hx Asthma: No Hx COPD: No Hx HIV: No Additional medical history: heart block-stent placement attempted 2018- unsuccessfully - Surgical History Hx Breast Surgery: Yes (reduction) Additional Surgical History: hysterectomy. tubal ligation - Social History Smoking Status: Never Smoker Substance Use Type: None ED Physical Exam - General Limitations: No Limitations General appearance: alert, in no apparent distress - Head Head exam: Present: atraumatic, normocephalic - Eye Eye exam: Present: normal appearance - ENT ENT exam: Present: mucous membranes moist - Neck Neck exam: Present: normal inspection - Respiratory Respiratory exam: Present: normal lung sounds bilaterally. Absent: respiratory distress - Cardiovascular Cardiovascular Exam: Present: regular rate, normal rhythm. Absent: systolic murmur, diastolic murmur, rubs, gallop - GI/Abdominal GI/Abdominal exam: Present: soft, normal bowel sounds - Extremities Exam Extremities exam: Present: normal inspection - Back Exam Back exam: Present: full ROM, CVA tenderness (L). Absent: muscle spasm, paraspinal tenderness - Neurological Exam Neurological exam: Present: alert, oriented X3 - Psychiatric Psychiatric exam: Present: normal affect, normal mood - Skin Skin exam: Present: warm, dry, intact, normal color. Absent: rash ED Course Vital Signs 01/12/21 12:34 Temperature 98.6 F Pulse Rate 75 Respiratory 20 Rate Blood Pressure 128/67 O2 Sat by Pulse 98 Oximetry ED Medical Decision Making - Lab Data Result diagrams: 01/12/21 13:18 01/12/21 13:18 Laboratory Tests 0401/12/21 01/12/21 13:18 13:18 Unknown WBC 7.3 RBC 3.81 Hgb 11.1 Hct 33.4 MCV 88 MCH 29 MCHC 33 RDW 14.2 Plt Count 303 Lymph % (Auto) 33.7 [place] % (Auto) 8.5 H Eos % (Auto) 4.5 H Baso % (Auto) 0.6 Lymph # (Auto) 2.5 [place] # (Auto) 0.6 Eos # (Auto) 0.3 Baso # (Auto) 0.0 Seg Neutrophils % 52.7 Seg Neutrophils # 3.8 Sodium 141 Potassium 3.9 Chloride 98.8 Carbon Dioxide 27 Anion Gap 19 BUN 33 H Creatinine 1.5 H Estimated GFR 42 BUN/Creatinine Ratio 22 Glucose 103 H Calcium 10.7 H Total Bilirubin 0.40 AST 18 ALT 18 Alkaline Phosphatase 69 Total Protein 7.8 Albumin 4.1 Albumin/Globulin Ratio 1.1 Lipase 126 H Urine Color Yellow Urine Turbidity Hazy Urine pH 7.0 Ur Specific Amonate 1.015 Urine Protein <15 mg/dl Urine Glucose (UA) Neg Urine Ketones Neg Urine Blood Neg Urine Nitrite Neg Urine Bilirubin Neg Urine Urobilinogen < 2.0 Ur Leukocyte Esterase Neg Urine WBC (Auto) 1.0 Urine RBC (Auto) 1.0 U Epithel Cells (Auto) 3.0 - Radiology Data Radiology results: [place] [address] Cat Scan Report Signed Patient: ROMY BALLESTEROS MR#: [id number] : 1955 Acct:[id number] Age/Sex: 65 / F ADM Date: 01/12/21 Loc: ED Attending Dr: Ordering Physician: DINA YATES Date of Service: 01/12/21 Procedure(s): CT abdomen pelvis w con Accession Number(s): [id number] cc: DINA YATES CT ABDOMEN AND PELVIS WITH CONTRAST INDICATION / CLINICAL INFORMATION: abd pain. TECHNIQUE: Axial CT images were obtained through the abdomen and pelvis after 100 cc of Omnipaque [address] scans at this location are performed using CT dose reduction for ALARA by means of automated exposure control. COMPARISON: Noncontrast CT scans dated 01/12/2021 and 06/06/2020 FINDINGS: LOWER CHEST: No significant abnormality. LIVER: No significant abnormality. GALLBLADDER: No significant abnormality. BILE DUCTS: No significant abnormality. PANCREAS: No significant abnormality. SPLEEN: No significant abnormality. ADRENALS: No significant abnormality. RIGHT KIDNEY / URETER: No significant abnormality. LEFT KIDNEY / URETER: No significant abnormality. STOMACH / SMALL BOWEL: No significant abnormality. COLON: Diverticulosis without acute inflammation. APPENDIX: No significant abnormality. PERITONEUM: No free fluid. No free air. No fluid collection. LYMPH NODES: No significant adenopathy. AORTA / ARTERIES: Moderate atherosclerotic calcification without acute abnormality. IVC / VEINS: No significant abnormality. URINARY BLADDER: No significant abnormality. REPRODUCTIVE ORGANS: No significant abnormality. ADDITIONAL FINDINGS: None. SKELETAL SYSTEM: No acute abnormality. Degenerative changes in the spine are a gain noted IMPRESSION: 1. There is no obstruction, inflammation, or free air. There are no abnormal fluid collections. There is no significant change. Signer Name: Samuel Coffman MD Signed: 01/12/2021 5:50 PM Workstation Name: [id number] Transcribed By: SS Dictated By: Samuel Coffman MD Electronically Authenticated By: Samuel Coffman MD Signed Date/Time: 01/12/211749 DD/ 45 TD/TT: Print Cancel - Medical Decision Making 65-year-old -[place] female with a past medical history of hypertension, CVA x3 that she is aware of kidney disease and diabetes. Patient presents for left flank pain that radiates to the right side. This has been going on for approximately 2 months nothing makes it worse today that she felt she needed to come in. Patient states that she just was tired of being in a state and decided to come in to be evaluated. Patient states that she had discussed with her primary care provider and they were going to order labs. She does report she has nausea. She states that laying on her left side makes it worse and as she gets up from laying down she has pain. She denies any dysuria no urinary incontinent no hematuria no hematochezia no diarrhea no vomiting no chest pain or shortness of breath. Patient states that she is on a lot of medication but not aware of all of them. She does admit she is on potassium a water pill Metformin. She is followed by provider at [facility] on [facility] and her pharmacy is [facility]. Case was discussed with Dr. Siegel and he agrees that a CT with contrast will be appropriate. Discussed that we will give her a liter of normal saline to flush contrast out. Spoke with patient regarding her results from her CT head there is no acute abnormalities or concerns at this time. Discussed with patient she can try taking Tylenol for pain management. Follow-up with her primary care provider. The patient is resting comfortably and feels better, is alert and in no distress. The repeat examination is unremarkable and benign; in particular, there is no discomfort at the McBurney's point and there is no pulsating mass. The history, exam and diagnostic testing, and current condition do not suggest an acute appendicitis, bowel obstruction, or acute cholecystitis, bowel perforation, major gastrointestinal bleeding, severe diverticulitis, abdominal aorta, mesenteric ischemia, volvulus, sepsis, or other significant pathology to warrant further testing, continued ED treatment, admission, or surgical evaluation at this point. The vital signs have been stable. The patient does not have uncomfortable pain, irretractable vomiting, or other significant symptoms. The patient's condition is stable and appropriate for discharge from the emergency room. The patient will pursue further outpatient evaluation with the primary care physician or other designated or consulting physician as indicated in the discharge instructions. Critical care attestation.: If time is entered above; I have spent that time in minutes in the direct care of this critically ill patient, excluding procedure time. ED Disposition Is pt being admited?: No Does the pt Need Aspirin: No
--- NOTE | 2021-01-12 17:54 | Cat Scan Report ---
CT ABDOMEN AND PELVIS WITH CONTRAST INDICATION / CLINICAL INFORMATION: abd pain. TECHNIQUE: Axial CT images were obtained through the abdomen and pelvis after 100 cc of Omnipaque [address] scans at this location are performed using CT dose reduction for ALARA by means of automated exposure control. COMPARISON: Noncontrast CT scans dated 01/12/2021 and 06/06/2020 FINDINGS: LOWER CHEST: No significant abnormality. LIVER: No significant abnormality. GALLBLADDER: No significant abnormality. BILE DUCTS: No significant abnormality. PANCREAS: No significant abnormality. SPLEEN: No significant abnormality. ADRENALS: No significant abnormality. RIGHT KIDNEY / URETER: No significant abnormality. LEFT KIDNEY / URETER: No significant abnormality. STOMACH / SMALL BOWEL: No significant abnormality. COLON: Diverticulosis without acute inflammation. APPENDIX: No significant abnormality. PERITONEUM: No free fluid. No free air. No fluid collection. LYMPH NODES: No significant adenopathy. AORTA / ARTERIES: Moderate atherosclerotic calcification without acute abnormality. IVC / VEINS: No significant abnormality. URINARY BLADDER: No significant abnormality. REPRODUCTIVE ORGANS: No significant abnormality. ADDITIONAL FINDINGS: None. SKELETAL SYSTEM: No acute abnormality. Degenerative changes in the spine are again noted IMPRESSION: 1. There is no obstruction, inflammation, or free air. There are no abnormal fluid collections. There is no significant change. Signer Name: Samuel Coffman MD Signed: 01/12/2021 5:50 PM Workstation Name: [id number]
[2021-01-12 19:03] VITALS: BP 138/84
== END 2021-01-12 19:04 | disposition home or self-care (01) ==
LOC: ED 12:13
DX: G89.29 Other chronic pain (principal); R10.9 Unspecified abdominal pain; I11.0 Hypertensive heart disease with heart failure; I50.9 Heart failure, unspecified; E11.9 Type 2 diabetes mellitus without complications; Z98.890 Other specified postprocedural states; Z90.710 Acquired absence of both cervix and uterus; Z86.73 Personal history of transient ischemic attack (TIA), and cerebral infarction without residual deficits; Z79.899 Other long term (current) drug therapy; Z98.51 Tubal ligation status
CPT/HCPCS: 36415; 74176; 74177; 80053; 81001; 83690; 85025; 96361; 96374; 99284; J2405; J7030; Q9967

== ENCOUNTER 2022-03-13 20:21 | Emergency (ER) | payer MEDICARE ==
[2022-03-13 21:01] VITALS: BP 143/81
== END 2022-03-14 05:00 | disposition left against medical advice (07) ==
LOC: ED 20:21
DX: S09.90XA Unspecified injury of head, initial encounter (principal); Z53.21 Procedure and treatment not carried out due to patient leaving prior to being seen by health care provider; W19.XXXA Unspecified fall, initial encounter; Y93.89 Activity, other specified; Y92.89 Other specified places as the place of occurrence of the external cause; Y99.8 Other external cause status